=== PATIENT | female | born 1990 | race American Indian/Alaskan Native ===

== ENCOUNTER 2020-07-05 22:12 | Emergency (ER) | payer OTHER ==
[2020-07-05 23:10] VITALS: BP 132/90
--- NOTE | 2020-07-06 00:33 | Emergency Department Report ---
ED General Adult HPI - General Chief complaint: Chest Pain Stated complaint: CHEST PAIN Time Seen by Provider: 07/06/20 00:28 Source: patient Mode of arrival: Ambulatory Limitations: No Limitations - History of Present Illness Initial comments: Patient is a 30-year-old female presents emergency room with complaints of left- sided chest pain that began 3 days ago. She states that the pain feels like a dull aching. she states the pain is worse with movement and with lifting the arms. She denies any fall or injury. she states that she works at a [employer] center and does repetitive movements all day long. she denies any fever, nausea, vomiting, diarrhea, cough, shortness of breath, leg swelling. She denies any sick contacts, recent travel, recent surgery. No past medical history. No allergies to medications. Last menstrual cycle 06/22/2020. - Related Data Previous Rx's Medication Instructions Recorded Last Taken Type Amoxicillin/Potassium Clav 1 each PO BID #14 tablet 06/13/18 Unknown Rx [Augmentin 875-125 Tablet] Fluticasone [Flonase] 1 spray NS QDAY #1 bottle 06/13/18 Unknown Rx HYDROcodone/APAP 5-325 [Kelly 1 each PO Q6HR PRN #15 tablet 06/13/18 Unknown Rx 5/325] predniSONE [Deltasone] 20 mg PO QDAY #5 tab 06/13/18 Unknown Rx Naproxen [Naprosyn TAB] 500 mg PO BID PRN #20 tablet 07/06/20 Unknown Rx Prednisone [predniSONE 10 mg 10 mg PO .TAPER #1 tab.ds.pk 07/06/20 Unknown Rx (6-Day Pack, 21 Tabs)] Allergies Allergy/AdvReac Type Severity Reaction Status Date / Time No Known Allergies Allergy Unverified 06/13/18 20:03 ED Review of Systems ROS: Stated complaint: CHEST PAIN Other details as noted in HPI Comment: All other systems reviewed and negative ED Past Medical Hx - Past Medical History Previous Medical History?: No - Surgical History Past Surgical History?: No - Social History Smoking Status: Never Smoker Substance Use Type: None - Medications Home Medications: Home Medications Medication Instructions Recorded Confirmed Last Taken Type Amoxicillin/Potassium Clav 1 each PO BID #14 tablet 06/13/18 Unknown Rx [Augmentin 875-125 Tablet] Fluticasone [Flonase] 1 spray NS QDAY #1 bottle 06/13/18 Unknown Rx HYDROcodone/APAP 5-325 [Kelly 1 each PO Q6HR PRN #15 tablet 06/13/18 Unknown Rx 5/325] predniSONE [Deltasone] 20 mg PO QDAY #5 tab 06/13/18 Unknown Rx Naproxen [Naprosyn TAB] 500 mg PO BID PRN #20 tablet 07/06/20 Unknown Rx Prednisone [predniSONE 10 mg 10 mg PO .TAPER #1 tab.ds.pk 07/06/20 Unknown Rx (6-Day Pack, 21 Tabs)] ED Physical Exam - General Limitations: No Limitations General appearance: alert, in no apparent distress - Head Head exam: Present: atraumatic, normocephalic - Eye Eye exam: Present: normal appearance - ENT ENT exam: Present: mucous membranes moist - Respiratory Respiratory exam: Present: normal lung sounds bilaterally, chest wall tenderness (reproducible left anterior chest wall ttp, no crepitus, no deformity, no edema, no ecchymosis, no skin changes). Absent: respiratory distress, wheezes, rales, rhonchi, stridor, accessory muscle use, decreased breath sounds, prolonged expiratory - Cardiovascular Cardiovascular Exam: Present: regular rate, normal rhythm, normal heart sounds. Absent: systolic murmur, diastolic murmur, rubs, gallop - Extremities Exam Extremities exam: Absent: pedal edema - Neurological Exam Neurological exam: Present: alert, oriented X3 - Psychiatric Psychiatric exam: Present: normal affect, normal mood - Skin Skin exam: Present: warm, dry, intact ED Course Vital Signs 07/05/20 07/06/20 23:06 00:39 Temperature 98.0 F Pulse Rate 88 69 Respiratory 16 18 Rate Blood Pressure 132/90 O2 Sat by Pulse 100 97 Oximetry ED Medical Decision Making - EKG Data EKG shows normal: sinus rhythm, axis, intervals, QRS complexes, ST-T waves Rate: normal - Medical Decision Making Patient is a 30-year-old female presents emergency room with complaints of left- sided chest pain that began 3 days ago. She states that the pain feels like a dull aching. she states the pain is worse with movement and with lifting the arms. She denies any fall or injury. 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 she denies any fever, nausea, vomiting, diarrhea, cough, shortness of breath, leg swelling. She denies any sick contacts, recent travel, recent surgery. No past medical history. No allergies to medications. Last menstrual cycle 06/22/2020. Vitals are normal. On exam: reproducible left anterior chest wall ttp, no crepitus, no deformity, no edema, no ecchymosis, no skin changes. Examination appears most consistent with costochondritis. EKG ordered prior to my examination and is within normal limits. Do not suspect ACS, patient is low risk for cardiac event, her symptoms are not consistent with ACS, symptoms appear consistent with costochondritis given reproducible pain. Breath sounds are clear bilaterally, no wheezing, no rales, no rhonchi. No clinical signs of bacterial pneumonia or bacterial bronchitis. No clinical signs of pneumothorax. She has no pleuritic chest pain. PERC criteria negative for PE. Patient given prescription for naproxen and prednisone. Advised patient Please take medication as prescribed. May use ice for 15 minutes at a time, heating pad for 15 minutes at a time, rest, Epsom salt bath. Follow-up with a primary care doctor. Return to emergency room immediately for any new or worsening symptoms. Please increase your water intake. Eat a low-sodium diet. Incorporate 30 to 60 minutes of daily exercise. Critical care attestation.: If time is entered above; I have spent that time in minutes in the direct care of this critically ill patient, excluding procedure time. ED Disposition Clinical Impression: Atypical chest pain Disposition: [id number] TO HOME OR SELFCARE Is pt being admited?: No Does the pt Need Aspirin: No Condition: Stable Instructions: Costochondritis, [id number], Chest Pain (ED) Additional Instructions: Please take medication as prescribed. May use ice for 15 minutes at a time, heating pad for 15 minutes at a time, rest, Epsom salt bath. Follow-up with a primary care doctor. Return to emergency room immediately for any new or worsening symptoms. Please increase your water intake. Eat a low-sodium diet. Incorporate 30 to 60 minutes of daily exercise. Prescriptions: Naproxen [Naprosyn TAB] 500 mg PO BID PRN #20 tablet PRN Reason: pain Prednisone [predniSONE 10 mg (6-Day Pack, 21 Tabs)] 10 mg PO .TAPER #1 tab.ds.pk [facility] [Primary Care Provider] - 2-3 Days Time of Disposition: 00:31 Print Language: MONTENEGRIN
== END 2020-07-06 00:39 | disposition home or self-care (01) ==
LOC: ED 22:12
DX: R07.89 Other chest pain (principal); Z79.2 Long term (current) use of antibiotics; Z79.899 Other long term (current) drug therapy
CPT/HCPCS: 93005; 99282